=== PATIENT | male | born 1985 | race Two or more races ===

== ENCOUNTER 2025-04-14 11:58 | Inpatient (IN) | payer MEDICAID, OTHER ==
[~2025-04-14] VITALS: Ht 162.6 cm; Wt 75.1 kg
[2025-04-14] MEDS: LIDOCAINE VISCOUS 2% 15ML UD PO ONE ×2 (12:30→23:47)
[2025-04-14] MEDS ORDERED: PANTOPRAZOLE 40 MG TAB PO ONE ×2 (12:30)
[2025-04-14] MEDS: SUCRALFATE 1 GM TAB PO ONE ×2 (12:30→23:46)
--- NOTE | 2025-04-14 12:31 | ED.PDOC ---
General HPI Comments HPI: This is a 39 year old male presenting to the ED with chief complaint of hematuria and abdominal pain. Patient reports that he has been experiencing hematuria with associated dysuria, nausea, vomiting, loose stools, 9/10 epigastric abdominal pain, and suprapubic pain for the past week. Patient admits to daily, heavy ETOH abuse with Tequila and methamphetamine abuse. Patient denies any fever, chills, penile discharge, chest pain, SOB, flank pain, or dizziness. Initial Vitals BP: 166/108 HR: 118 RR: 16 O2 Sat: 96% Temp: 98.4F Past Medical history: Denies Past Surgical history: Appendectomy, Astigmatism surgery Medications: None Social History: Heavy ETOH use and +Methamphetamine use. Denies smoking. Allergies: NKDA HPI: Poor Historian. REVIEW OF SYSTEMS: CONSTITUTIONAL: Denies acute: fever, diaphoresis, chills, generalized weakness. HEAD: Denies acute: headache, photophobia Eyes: Denies acute: Double vision, vision loss, eye pain, eye discharge. EARS: Denies acute: tinnitus, hearing loss, ear discharge, ear pain, THROAT: Denies acute: sore throat, swelling, difficulty swallowing , pain with swallowing, change in voice. NECK: Denies acute: neck pain, neck swelling, stiff neck. HEART: Denies acute : chest pain, palpitations, LUNGS: Denies acute: SOB, wheezing, cough, hemoptysis ABDOMEN: Denies acute: melena , hematemesis, hematochezia SKIN: Denies acute: rash, redness, lesions, itchiness. EXTREMITIES: Denies acute: calf pain, numbness, tingling, weakness, denies pain in extremity. Denies acute: Low back pain. Neuro: Denies acute: focal neurological deficit, motor or sensory focal neurological deficit, tremors, seizure like activity, confusion, dizziness, change in mental status, loss of bowel or bladder function, cauda equina like symptoms. : Denies acute: dysuria, flank pain, increase in urinary frequency. PSYCH: Denies acute: hallucination, suicidal ideation, homicidal ideation. PHYSICAL EXAM: General: ----[id number]----acute distress, awake and alert. Head: normocephalic, atraumatic. Neck: supple, trachea is midline, no swelling. Throat: Normal phonation. Eyes:, no erythema, no purulent discharge, no proptosis, no icterus. Heart: regular tachycardia, no significant murmur appreciated. Lungs: no apparent respiratory distress, Able to speak in full sentences. No wheezing, no rhonchi, no crackles. No stridors Clear to auscultation bilaterally. Abdomen: epigastric and periumbilical tender to palpation, non distended, soft, no guarding, no rebound, + bowel sounds. Neuro: Awake, Alert, oriented to name, self, situation, follows commands GCS=15. Speech is normal. Skin: no petechia, no purpura, no cyanosis, non-pale, not jaundice. Lower extremities: --no - Pitting edema no deformity, no focal swelling, no calf TTP. Makes eye contact. moves all four extremities. Face: no apparent facial droop. Ambulating in the ED independently. ED COURSE: DISCLAIMER: This medical document was created using an electronic medical record system with voice recognition software and computerized dictation system. Although this document has been carefully reviewed, there might still be some phonetic and typographical errors. Occasional wrong-word or "sound-alike" substitutions may have occurred due to the inherent limitations of voice recognition software. These areas are purely typographical due to imperfections of the software programs and do not reflect any compromise in the patient's medical care. Please read the chart carefully and recognize, using context, where these substitutions have occurred. Time Seen by MD: 12:28 Reviewed notes: Medications, Allergies Allergies: Coded Allergies: NO KNOWN ALLERGIES (Unverified , 04/14/25) Information Source: Patient Mode of Arrival: Ambulatory Was a procedure done? Was a procedure done?: No Differential Diagnosis Kidney stone (Female): N/A Urinary Problem (Male): Bladder Outlet, Bladder Obstruction, Epididymitis, Prostatitis, Plelonephritis, Post op Complications, Renal Failure, Urethritis, Urinary Retention, Urolithiasis, UTI Other Differential Diagnosis DDX include but not limited to diverticulitis, colitis, gastroenteritis, acute abdomen, SBO, enteritis, constipation, volvulus, appendicitis, Gallbladder disease, choledocolithiasis, ascending cholangitis, pancreatitis, intraAbdominal mass/neoplasm, hepatitis, UTI, pylonephritis, kidney stone, aneurysm, dissection, Inflammatory bowel disease, gastroparesis, ischemic bowel. X-Ray, Labs, Meds, VS Vital Signs Date Time Temp Pulse Resp B/P (MAP) Pulse Ox O2 Delivery O2 Flow Rate FiO2 04/14/25 15:28 99.3 87 18 148/95 (112) 97 99.3 04/14/25 12:10 98.4 118 16 166/108 (127) 96 98.4 Lab Test 04/14/25 14:59 04/14/25 13:01 04/14/25 12:15 Range/Units Lactic Acid Level 1.8 2.3 *H 0.4-2.0 mmol/L White Blood Count 3.7 L 4.4-10.8 10^3/uL Red Blood Count 4.89 4.5-5.90 10^6/uL Hemoglobin 14.8 13.5-17.5 g/dL Hematocrit 42.8 41.0-53.0 % Mean Corpuscular Volume 87.5 80.0-100.0 fL Mean Corpuscular Hemoglobin 30.2 28.0-32.0 pg Mean Corpuscular Hemoglobin Concent 34.5 32.0-36.0 g/dL Red Cell Distribution Width 14.0 11.8-14.3 % Platelet Count 150 140-450 10^3/uL Mean Platelet Volume 7.8 6.9-10.8 fL Neutrophils (%) (Auto) 66.4 37.0-80.0 % Lymphocytes (%) (Auto) 21.1 10.0-50.0 % Monocytes (%) (Auto) 10.7 0.0-12.0 % Eosinophils (%) (Auto) 0.3 0.0-7.0 % Basophils (%) (Auto) 1.5 0.0-2.0 % Neutrophils # (Auto) 2.5 1.6-8.6 10 ^3/uL Lymphocytes # (Auto) 0.8 0.4-5.4 10 ^3/uL Monocytes # (Auto) 0.4 0-1.3 10 ^3/uL Eosinophils # (Auto) 0 0-0.8 10 ^3/uL Basophils # (Auto) 0.1 0-0.2 10 ^3/uL Nucleated Red Blood Cells 0.1 % Sodium Level 140 136-145 mmol/L Potassium Level 3.4 L 3.5-5.1 mmol/L Chloride Level 97 L 98-107 mmol/L Carbon Dioxide Level 31 20-31 mmol/L Anion Gap 12 5-15 Blood Urea Nitrogen < 5 L 9-23 mg/dL Creatinine 0.53 L 0.700-1.30 mg/dL Glomerular Filtration Rate Calc 132 >90 mL/min BUN/Creatinine Ratio 9.4 L 10.0-20.0 Serum Glucose 150 H 74-106 mg/dL Calcium Level 10.0 8.7-10.4 mg/dL Magnesium Level 1.5 L 1.6-2.6 mg/dL Total Bilirubin 1.0 0.2-1.0 mg/dL Aspartate Amino Transferase (AST) 159 H <34 U/L Alanine Aminotransferase (ALT) 173 H 7-40 U/L Alkaline Phosphatase 118 H 46-116 U/L Troponin I High Sensitivity 5 </=54 ng/L Total Protein 8.2 5.7-8.2 g/dL Albumin 5.2 H 3.2-4.8 g/dL Lipase 87 H 12-53 U/L Urine Color Yellow Yellow Urine Clarity Clear Clear Urine pH 6.5 5.0-9.0 Urine Specific [place] 1.015 1.001-1.035 Urine Protein 1+ H Negative Urine Ketones Trace Negative Urine Blood Negative Negative /uL Urine Nitrite Negative Negative Urine Bilirubin Negative Negative Urine Urobilinogen 3 H Negative mg/dL Urine Leukocyte Esterase Negative Negative /uL Urine RBC 2 0 - 3 /hpf Urine Microscopic WBC < 1 0-3 /HPF Urine Squamous Epithelial Cells Few <5 /hpf Urine Bacteria None seen None Seen /hpf Urine Glucose 3+ H Normal mg/dL Urine Opiates Screen Neg NEGATIVE Urine Fentanyl Screen Neg NEGATIVE Urine Barbiturates Screen Neg NEGATIVE Urine Phencyclidine Screen Neg NEGATIVE Urine Amphetamines Screen Neg NEGATIVE Urine Benzodiazepines Screen Neg NEGATIVE Urine Cocaine Screen Neg NEGATIVE Urine Cannabinoids Screen Neg NEGATIVE [facility] [id number] [place] [id number] Ph: [phone] DIAGNOSTIC IMAGING Diagnostic Imaging Report : [id number] Signed PATIENT: DOM LOERA RACCT: [id number] UNIT: [id number] : 1985 LOC: ER ROOM / BED: / AGE / SEX: 39 / M ADM STATUS: REG ER SERVICE 1223 ORDERING PHYSICIAN: ULYSSES LOUIS DO PROCEDURE(s): ABPL - CT AB PEL WO CON-NO ORAL OR IV REASON: abd pain n/v/d ORDER NUMBER(s): [id number], ACCESSION NUMBER(s): [id number] CT CT AB PEL WO CON-NO ORAL OR IV INDICATION: abd pain n/v/d EXAM DATE: 04/14/2025 12:33 PM COMPARISON: None RADIATION DOSE: CTDIvol: 9.3 mGy, DLP: 488.63 mGy*cm PROCEDURE: Helical CT images were obtained of the abdomen and pelvis without IV contrast Sagittal and coronal reconstructions are provided. ORAL CONTRAST: None. ADDITIONAL IMAGES / REFORMATS: None All CT scans at this medical facility are performed using dose modulation techniques as appropriate to a performed exam including the following: Automated exposure control was utilized; adjustment of the MA and/or KV according to patient size; and use of iterative reconstruction technique. FINDINGS: LUNG BASE: Normal. LIVER: Low in attenuation. 21 cm. GALLBLADDER AND BILIARY TREE: No calcified gallstones. Normal caliber wall. No intra- or extrahepatic biliary ductal dilation. PANCREAS: Normal. SPLEEN: Normal. BOWEL: Normal. Appendix is not visualized. ADRENALS: Normal. KIDNEYS AND URETER: Normal. BLADDER: Normal. REPRODUCTIVE ORGANS: Normal. LYMPH NODES:No lymphadenopathy. PERITONEUM: No ascites or free air. No other fluid collection. VESSELS: Scattered atherosclerotic calcifications are noted. RETROPERITONEUM: Normal. ABDOMINAL WALL: Normal. BONES: Scattered osseous degenerative changes are noted. IMPRESSION: No acute intraabdominal abnormality. Hepatomegaly with hepatic steatosis. Appendix not visualized. ATED BY: MITCH FULLER MD DICTATED DATE/TIME: 04/14/25 130 SIGNED BY: MITCH FULLER MD SIGNED DATE/TIME: 04/14/25 130 CC: Time of 1ST Reevaluation: 13:28 Reevaluation 1ST: Unchanged Patient Education/Counseling: Diagnosis, Treatment Family Education/Counseling: No Family Present Departure 1 Departure Time of Disposition: 13:38 Impression: Primary Impression: Alcohol abuse Additional Impressions: Pancreatitis Elevated LFTs Abdominal pain Alcoholic gastritis Hypomagnesemia Disposition: ADMITTED INPATIENT Admit to: Tele Condition: Guarded Discharged With: Self Critical Care Note Critical Care Time?: Yes (45 min-critical care time only) I personally scribed for ULYSSES LOUIS DO ([email or web address]) on 04/14/25 at 12:30. Electronically submitted by Felice Moreno ([email or web address]). I personally scribed for ULYSSES LOUIS DO ([email or web address]) on 04/14/25 at 14:14. Electronically submitted by Felice Moreno ([email or web address]). I personally scribed for ULYSSES LOUIS DO ([email or web address]) on 04/14/25 at 14:37. Electronically submitted by Felice Moreno ([email or web address]). ULYSSES LOUIS DO Apr 14, 2025 12:30
[2025-04-14 12:56] LABS: Urine Bacteria None Seen /hpf (None Seen)
--- NOTE | 2025-04-14 13:09 | DVH ---
CT CT AB PEL WO CON-NO ORAL OR IV INDICATION: abd pain n/v/d EXAM DATE: 04/14/2025 12:33 PM COMPARISON: None RADIATION DOSE: CTDIvol: 9.3 mGy, DLP: 488.63 mGy*cm PROCEDURE: Helical CT images were obtained of the abdomen and pelvis without IV contrast Sagittal and coronal reconstructions are provided. ORAL CONTRAST: None. ADDITIONAL IMAGES / REFORMATS: None All C T scans at this medical facility are performed using dose modulation techniques as appropriate to a p erformed exam including the following: Automated exposure control was utilized; adjustment of the MA and/or KV according to patient size; and use of iterative reconstruction technique. FINDINGS: LUNG BASE: Normal. LIVER: Low in attenuation. 21 cm. GALLBLADDER AND BILIARY TREE: No calcified gallstones. Normal caliber wall. No intra- or extrahepatic biliary ductal dilation. PANCREAS: Normal. SPLEEN: Normal. BOWEL: Normal. Appendix is not visualized. ADRENALS: Normal. KIDNEYS AND URETER: Normal. BLADDER: Normal. REPRODUCTIVE ORGANS: Normal. LYMPH NODES:No lymphadenopathy. PERITONEUM: No ascites or free air. No other fluid collection. VESSELS: Scattered atherosclerotic calcifications are noted. RETROPERITONEUM: Normal. ABDOMINAL WALL: Normal. BONES: Scattered osseous degenerative changes are noted. IMPRESSION: No acute intraabdominal abnormality. Hepatomegaly with hepatic steatosis. Appendix not visualized.
[2025-04-14 13:11] LABS: Urine Blood Negative /uL (Negative); Urine Clarity Clear (Clear); Urine Color Yellow (Yellow); Urine Protein, UAD 1+ (Negative); Urine Specific Gravity 1.015 (1.001-1.035); Urine Squamous Epithelial Cell FEW /hpf (<5); Urine Urobilinogen 3 mg/dL (Negative); Urine WBC < 1 /HPF (0-3); Urine pH 6.5 (5.0-9.0)
[2025-04-14 13:16] LABS: Basophils # (auto) 0.1 10 ^3/uL (0-0.2); Basophils % (auto) 1.5 % (0.0-2.0); Eosinophils # (auto) 0 10 ^3/uL (0-0.8); Eosinophils % (auto) 0.3 % (0.0-7.0); Hematocrit 42.8 % (41.0-53.0); Hemoglobin 14.8 g/dL (13.5-17.5); Lymphocytes # (auto) 0.8 10 ^3/uL (0.4-5.4); Lymphocytes % (auto) 21.1 % (10.0-50.0); Mean Corpuscular Hemoglobin 30.2 pg (28.0-32.0); Mean Corpuscular Hgb Conc. 34.5 g/dL (32.0-36.0); Mean Corpuscular Volume 87.5 fL (80.0-100.0); Monocytes # (auto) 0.4 10 ^3/uL (0-1.3); Monocytes % (auto) 10.7 % (0.0-12.0); Neutrophils # (auto) 2.5 10 ^3/uL (1.6-8.6); Neutrophils % (auto) 66.4 % (37.0-80.0); Nucleated Red Blood Cells % 0.1 %; Platelet Count (auto) 150 10^3/uL (140-450); Red Blood Cells 4.89 10^6/uL (4.5-5.90); White Blood Cell 3.7 10^3/uL (4.4-10.8)
[2025-04-14 13:20] LABS: Amphetamine Screen, Urine Neg (NEGATIVE); Barbiturate Scree,Urine Neg (NEGATIVE); Benzodiazephine Screen, Urine Neg (NEGATIVE); Cannabinoid Screen, Urine Neg (NEGATIVE); Cocaine Screen, Urine Neg (NEGATIVE); Opiate Scree,Urine Neg (NEGATIVE); Phencyclidine Screen, Urine Neg (NEGATIVE)
[2025-04-14 13:34] LABS: Anion Gap 12 (5-15); Sodium 140 mmol/L (136-145)
[2025-04-14 13:35] LABS: Alanine Aminotransferase 173 U/L (7-40); Albumin 5.2 g/dL (3.2-4.8); Alkaline Phosphatase 118 U/L (46-116); Aspartate Aminotransferase 159 U/L (<34); BUN/Creatinine Ratio 9.4 (10.0-20.0); Blood Urea Nitrogen < 5 mg/dL (9-23); Carbon Dioxide 31 mmol/L (20-31); Chloride 97 mmol/L (98-107); Glucose 150 mg/dL (74-106); Lipase 87 U/L (12-53); Magnesium 1.5 mg/dL (1.6-2.6); Potassium 3.4 mmol/L (3.5-5.1); Total Protein 8.2 g/dL (5.7-8.2)
[2025-04-14 13:37] LABS: Lactic Acid w/Reflex 2.3 mmol/L (0.4-2.0)
--- NOTE | 2025-04-14 14:57 | DVHHP2 ---
History of Present Illness Reason for Visit: Abdominal pain History of Present Illness 39-year-old male past medical history appendectomy eye surgery and hypertension chief complaint patient is here with the sister at side they state he is currently homeless he has been coming in with multiple complaints she is complain with the flank pain pelvic pain around his prostate difficulty voiding he does have some blood in his urine dissolving going on for one week he denies any chest pain no shortness with the breath no headache no dizziness no fever patient does admit to heavy drinking he states that he drank pretty heavy yesterday was his last drink he drinks a large amount of Tequila daily patient does admit that he wants to get help for his drinking he does complain of some abdominal pain which is epigastric in nature he was given Mag normal saline Protonix Carafate and a GI cocktail in the ED CBC was unremarkable potassium was 3.1 glucose was 150 urine drug screen was negative UA was negative lactate was 2.3 Mag was 1.5 AST was 159 ALT was 1738 alkaline phosphatase 118 troponin was negative lipase was 87 patient does admit to meth use two weeks ago with these findings we will admit provide IV hydration for alcohol withdrawal also we will do further workup also we will consult healthcare social worker for discharge planning Past Medical History See HPI above Past Surgical History See HPI above Past Social History Patient does drink heavy last drink was today denies drug use last use was two weeks ago with meth denies smoking Review of Systems Constitutional: No: Fever, Chills, Sweats, Weakness, Malaise, Other Eyes: No: Pain, Vision change, Conjunctivae inflammation, Eyelid inflammation, Other, Redness ENT: No: Ear pain, Ear discharge, Nose pain, Nose discharge, Nose congestion, Mouth pain, Mouth swelling, Throat pain, Throat swelling, Other Respiratory: No: Cough, Dry, Shortness of breath, SOB with excertion, Wheezing, Hemoptysis, Pleuritic Pain, Sputum, Wheezing, Other Cardiovascular: No: Chest Pain, Palpitations, Orthopnea, Paroxysmal Noc. Dyspnea, Edema, Lt Headedness, Other Gastrointestinal: Nausea, Vomiting, Abdominal Pain; No: Diarrhea, Constipation, Melena, Hematochezia, Other Genitourinary: No Dysuria, No Frequency, No Incontinence, No Hematuria, No Retention, No Other Musculoskeletal: No: other, neck pain, shoulder pain, arm pain, back pain, hand pain, leg pain, foot pain Skin: No: Rash, Lesions, Jaundice, Bruising, Other Neurological: No: Weakness, Numbness, Incoordination, Change in speech, Confusion, Seizures, Other Allergies: Coded Allergies: NO KNOWN ALLERGIES (Unverified , 04/14/25) Exam Vital Signs Vital Signs Date Time Temp Pulse Resp B/P (MAP) Pulse Ox O2 Delivery O2 Flow Rate FiO2 04/14/25 12:10 98.4 118 16 166/108 (127) 96 98.4 General Appearance: Alert, Oriented X3, Cooperative, No acute distress HEENT: Atraumatic, PERRLA, EOMI, Mucous membr. moist/pink Respiratory: Clear to auscultation, Normal air movement Cardiovascular: Regular rate, Normal S1, Normal S2, No murmurs Abdominal: Normal bowel sounds, Soft, No hepatospenomegaly, No masses, Other (epigastric ) Extremities: No clubbing, No cyanosis, No edema, Normal pulses, No tenderness/swelling Skin: No rashes, No breakdown, No significant lesion Neuro: Normal gait, Normal speech, Strength at 5/5 X4 ext, Normal tone, Sensation intact, Cranial nerves 3-12 NL Psych/Mental Status: Mental status NL, Mood NL Labs/Xrays I reviewed labs, imaging CT scan abdomen pelvis, EKG and all diagnostic studies on this patient from ED records and the medical chart Labs Test 04/14/25 13:01 04/14/25 12:15 Range/Units White Blood Count 3.7 L 4.4-10.8 10^3/uL Red Blood Count 4.89 4.5-5.90 10^6/uL Hemoglobin 14.8 13.5-17.5 g/dL Hematocrit 42.8 41.0-53.0 % Mean Corpuscular Volume 87.5 80.0-100.0 fL Mean Corpuscular Hemoglobin 30.2 28.0-32.0 pg Mean Corpuscular Hemoglobin Concent 34.5 32.0-36.0 g/dL Red Cell Distribution Width 14.0 11.8-14.3 % Platelet Count 150 140-450 10^3/uL Mean Platelet Volume 7.8 6.9-10.8 fL Neutrophils (%) (Auto) 66.4 37.0-80.0 % Lymphocytes (%) (Auto) 21.1 10.0-50.0 % Monocytes (%) (Auto) 10.7 0.0-12.0 % Eosinophils (%) (Auto) 0.3 0.0-7.0 % Basophils (%) (Auto) 1.5 0.0-2.0 % Neutrophils # (Auto) 2.5 1.6-8.6 10 ^3/uL Lymphocytes # (Auto) 0.8 0.4-5.4 10 ^3/uL Monocytes # (Auto) 0.4 0-1.3 10 ^3/uL Eosinophils # (Auto) 0 0-0.8 10 ^3/uL Basophils # (Auto) 0.1 0-0.2 10 ^3/uL Nucleated Red Blood Cells 0.1 % Sodium Level 140 136-145 mmol/L Potassium Level 3.4 L 3.5-5.1 mmol/L Chloride Level 97 L 98-107 mmol/L Carbon Dioxide Level 31 20-31 mmol/L Anion Gap 12 5-15 Blood Urea Nitrogen < 5 L 9-23 mg/dL Creatinine 0.53 L 0.700-1.30 mg/dL Glomerular Filtration Rate Calc 132 >90 mL/min BUN/Creatinine Ratio 9.4 L 10.0-20.0 Serum Glucose 150 H 74-106 mg/dL Lactic Acid Level 2.3 *H 0.4-2.0 mmol/L Calcium Level 10.0 8.7-10.4 mg/dL Magnesium Level 1.5 L 1.6-2.6 mg/dL Total Bilirubin 1.0 0.2-1.0 mg/dL Aspartate Amino Transferase (AST) 159 H <34 U/L Alanine Aminotransferase (ALT) 173 H 7-40 U/L Alkaline Phosphatase 118 H 46-116 U/L Troponin I High Sensitivity 5 </=54 ng/L Total Protein 8.2 5.7-8.2 g/dL Albumin 5.2 H 3.2-4.8 g/dL Lipase 87 H 12-53 U/L Urine Color Yellow Yellow Urine Clarity Clear Clear Urine pH 6.5 5.0-9.0 Urine Specific [place] 1.015 1.001-1.035 Urine Protein 1+ H Negative Urine Ketones Trace Negative Urine Blood Negative Negative /uL Urine Nitrite Negative Negative Urine Bilirubin Negative Negative Urine Urobilinogen 3 H Negative mg/dL Urine Leukocyte Esterase Negative Negative /uL Urine RBC 2 0 - 3 /hpf Urine Microscopic WBC < 1 0-3 /HPF Urine Squamous Epithelial Cells Few <5 /hpf Urine Bacteria None seen None Seen /hpf Urine Glucose 3+ H Normal mg/dL Urine Opiates Screen Neg NEGATIVE Urine Fentanyl Screen Neg NEGATIVE Urine Barbiturates Screen Neg NEGATIVE Urine Phencyclidine Screen Neg NEGATIVE Urine Amphetamines Screen Neg NEGATIVE Urine Benzodiazepines Screen Neg NEGATIVE Urine Cocaine Screen Neg NEGATIVE Urine Cannabinoids Screen Neg NEGATIVE Assessment/Plan Assessment/Plan acute etoh withdrawal likely intox pt admit to drinking heavy etoh use tequila and meth ordered Librium taper ordered Ativan as needed ordered Seizure precautions monitor for etoh withdrawal ordered etoh level ordered vit b 12 level fu results ordered banana bag acute acholic keto acidosis related to alcohol intoxication lactic elevated ordered iv hydration ordered bmp daily ordered Ativan as needed acute Intractable abdominal pain epigastric pain ordered Protonix morphine Zofran ordered us fu results ordered N.p.o. for now Acute transaminitis likely from etoh abuse ordered us liver fu results ordered hepatitis testing avoid liver toxic drugs monitor for confusion acute hypokalemia ordered potassium oral fu k in am mag lower ordered mag replacement acute pancreatitis elevated lipase npo for now ordered ivf hydration ordered morphine as needed for pain acute EtOH abuse hospital social worker also consult for resources Encourage abstinence fen/ppx npo Protonix IV fluids SCDs no dvt ppx since pt is ambulatory plan admit to tele for IV fluid hydration monitor for alcohol withdrawal and seizure precautions Plan discussed with: Patient Date of Service: Apr 14, 2025 Billing Provider: MJ ESPARZA DNP Common Visit Codes: [id number] INP/OBS CARE (HIGH) MJ ESPARZA DNP Apr 14, 2025 14:57
[2025-04-14] MEDS ORDERED: NITROGLYCERIN 0.4 MG SL TAB SL PRN (16:15)
[2025-04-14] MEDS ORDERED: ONDANSETRON HCL 4 MG/2 ML VIAL IV PRN (16:15)
[2025-04-14] MEDS ORDERED: MORPHINE SULFATE INJ 2 MG/ml SYRG IV PRN (16:15)
[2025-04-14] MEDS ORDERED: DOCUSATE SOD 100 MG CAP PO PRN (16:15)
--- NOTE | 2025-04-14 17:50 | DVH ---
INDICATION: ordered us eval for acute transaminitis/ epigastric pain TECHNIQUE: Multiple real-time sonographic images were obtained of the right upper quadrant. COMPARISON: None FINDINGS: The liver appears echogenic consistent with fatty infiltration. Mild hepatomegaly. No gallstones No right renal hydronephrosis Normal inferior vena cava Common bile duct measures 0.3 cm Gallbladder wall measures 0.1 cm Negative Vann's sign No pleural effusion Normal pancreas IMPRESSION: 1. No gallstones Mild hepatomegaly
[2025-04-14] MEDS: chlordiazePOXIDE HCL 25 MG CAP PO SCH (23:46)
[2025-04-14] MEDS: POTASSIUM EFFERVESENT TAB 25 MEQ PO ONE (23:47)
[2025-04-14] MEDS: PANTOPRAZOLE 40 MG/10 ML VIAL INJ IV ONE (23:47)
[2025-04-14] MEDS: SODIUM CHLORIDE 0.9% 1,000 ML IV ONE (23:48)
[2025-04-14] MEDS: ONDANSETRON HCL 4 MG/2 ML VIAL IV ONE (23:48)
[2025-04-14] MEDS: MAGNESIUM SULFATE 1GM/100ML 100 ML IV ONE (23:57)
[2025-04-15] VITALS (8 sets, daily range): BP systolic 150–157; BP diastolic 85–111; PULSE 95–111; RESP 17–20; TEMP 97.7–99.4; O2SAT 95–99
[2025-04-15] MEDS: SODIUM CHLORIDE 0.9% 1,000 ML IV ONE (00:22)
[2025-04-15] MEDS: SODIUM CHLORIDE 0.9% 1,000 ML IV SCH (00:35)
[2025-04-15 05:19] LABS: Basophils # (auto) 0 10 ^3/uL (0-0.2); Basophils % (auto) 1.1 % (0.0-2.0); Eosinophils # (auto) 0 10 ^3/uL (0-0.8); Eosinophils % (auto) 0.9 % (0.0-7.0); Hematocrit 37.8 % (41.0-53.0); Hemoglobin 12.8 g/dL (13.5-17.5); Lymphocytes # (auto) 1.5 10 ^3/uL (0.4-5.4); Lymphocytes % (auto) 35.8 % (10.0-50.0); Mean Corpuscular Hemoglobin 29.8 pg (28.0-32.0); Mean Corpuscular Hgb Conc. 33.8 g/dL (32.0-36.0); Monocytes # (auto) 0.5 10 ^3/uL (0-1.3); Monocytes % (auto) 10.8 % (0.0-12.0); Neutrophils # (auto) 2.2 10 ^3/uL (1.6-8.6); Neutrophils % (auto) 51.4 % (37.0-80.0); Platelet Count (auto) 132 10^3/uL (140-450); Red Cell Distribution Width 13.9 % (11.8-14.3); White Blood Cell 4.3 10^3/uL (4.4-10.8)
[2025-04-15 05:33] LABS: Albumin 4.5 g/dL (3.2-4.8); Alkaline Phosphatase 88 U/L (46-116); Anion Gap 9 (5-15); BUN/Creatinine Ratio 12.7 (10.0-20.0); Calcium 9.1 mg/dL (8.7-10.4); Carbon Dioxide 29 mmol/L (20-31); Chloride 101 mmol/L (98-107); Sodium 139 mmol/L (136-145)
[2025-04-15 05:34] LABS: Bilirubin, Total 0.9 mg/dL (0.2-1.0)
[2025-04-15 05:35] LABS: Alanine Aminotransferase 128 U/L (7-40); Aspartate Aminotransferase 102 U/L (<34); Blood Urea Nitrogen 7 mg/dL (9-23); Glucose 161 mg/dL (74-106); Lipase 103 U/L (12-53); Potassium 3.3 mmol/L (3.5-5.1)
[2025-04-15] MEDS: chlordiazePOXIDE HCL 25 MG CAP PO SCH (10:51)
[2025-04-15] MEDS: PANTOPRAZOLE 40 MG/10 ML VIAL INJ IV SCH (10:51)
[2025-04-15] MEDS: FOLIC ACID 1 MG, MULTIPLE VITAMIN 10 ML, MAGNESIUM SULF SDV 50% 8 MEQ, THIAMINE INJ 100... INJ SCH (14:13)
--- NOTE | 2025-04-15 16:50 | DVHPN2 ---
Subjective Patient denies any abdominal pain currently tolerating diet. Changes from previous H/P or p: No Changes Eyes: No Pain, No Vision change, No Conjunctivae inflammation, No Eyelid inflammation, No Other, No Redness ENT: No Ear pain, No Ear discharge, No Nose pain, No Nose discharge, No Nose congestion, No Mouth pain, No Mouth swelling, No Throat pain, No Throat swelling, No Other Cardiovascular: No Chest Pain, No Palpitations, No Orthopnea, No Paroxysmal Noc. Dyspnea, No Edema, No Lt Headedness, No Other Respiratory: No Cough, No Dry, No Shortness of breath, No SOB with excertion, No Wheezing, No Hemoptysis, No Pleuritic Pain, No Sputum, No Other Gastrointestinal: Nausea, Vomiting, Abdominal Pain; No Diarrhea, No Constipation, No Melena, No Hematochezia, No Other Genitourinary: No Dysuria, No Frequency, No Incontinence, No Hematuria, No Retention, No Other Musculoskeletal: No other, No neck pain, No shoulder pain, No arm pain, No back pain, No hand pain, No leg pain, No foot pain Skin: No Rash, No Lesions, No Jaundice, No Bruising, No Other Objective Vitals Vital Signs Date Time Temp Pulse Resp B/P (MAP) Pulse Ox O2 Delivery O2 Flow Rate FiO2 04/15/25 16:23 97.7 99 17 156/111 (126) 98 97.7 04/14/25 23:45 Room Air* 0 21 Intake/Output Intake and Output 04/15/25 07:00 Intake Total 1100 ml Balance 1100 ml Intake IV Total 1100 ml Exam HEENT pupils are reactive Neck is supple CVS S1-S2 regular rate and rhythm Respiratory are clear GI positive bowel sounds soft nondistended nontender no guarding no rigidity Extremity no edema 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 Medications Current Medications Medications Dose Ordered Sig/Stephanie Route Start Time Stop Time Status Last Admin Dose Admin Chlordiazepoxide HCl 50 mg Q12HR PO 04/15/25 10:00 04/15/25 22:01 04/15/25 10:51 50 MG Chlordiazepoxide HCl 25 mg Q12HR PO 04/16/25 10:00 04/16/25 22:01 Chlordiazepoxide HCl 25 mg QAM PO 04/17/25 07:00 04/17/25 07:01 Sodium Chloride 1,000 ml @ 120 mls/hr Q8H20M IV 04/14/25 16:15 04/15/25 12:20 120 MLS/HR Ondansetron HCl 4 mg Q4HP PRN IV 04/14/25 16:15 Docusate Sodium 100 mg BIDPRN PRN PO 04/14/25 16:15 Morphine Sulfate 2 mg Q4HPRN PRN IV 04/14/25 16:15 Nitroglycerin 0.4 mg Q5MINP PRN SL 04/14/25 16:15 Pantoprazole Sodium 40 mg DAILY IV 04/15/25 10:00 04/15/25 10:51 40 MG Folic Acid 1 mg/ Multivitamins 10 ml/Magnesium Sulfate 8 meq/ Thiamine HCl 100 mg/Dextrose 1,013.2 ml @ 125.001 mls/hr DAILY@1800 INJ 04/14/25 18:00 Hydralazine HCl 10 mg Q6HP PRN IV 04/14/25 16:15 Laboratory Results Laboratory Tests 04/15/25 04:28 Chemistry Test 04/15/25 04:28 Albumin 4.5 g/dL (3.2-4.8) Calcium Level 9.1 mg/dL (8.7-10.4) Total Protein 7.0 g/dL (5.7-8.2) Lipid panel Test 04/15/25 04:28 Lipase 103 U/L (12-53) H LFT Test 04/15/25 04:28 Alanine Aminotransferase (ALT) 128 U/L (7-40) H Alkaline Phosphatase 88 U/L (46-116) Aspartate Amino Transferase (AST) 102 U/L (<34) H Total Bilirubin 0.9 mg/dL (0.2-1.0) Urinalysis Test 04/14/25 12:15 Urine Color Yellow (Yellow) Urine Clarity Clear (Clear) Urine pH 6.5 (5.0-9.0) Urine Specific [place] 1.015 (1.001-1.035) Urine Protein 1+ (Negative) H Urine Ketones Trace (Negative) Urine Blood Negative /uL (Negative) Urine Nitrite Negative (Negative) Urine Bilirubin Negative (Negative) Urine Urobilinogen 3 mg/dL (Negative) H Urine Leukocyte Esterase Negative /uL (Negative) Urine RBC 2 /hpf (0 - 3) Urine Microscopic WBC < 1 /HPF (0-3) Urine Squamous Epithelial Cells Few /hpf (<5) Urine Bacteria None seen /hpf (None Seen) Urine Glucose 3+ mg/dL (Normal) H Assessment/Plan Assessment/Plan 39-year-old male with a known history of chronic alcoholism, chronic methamphetamine use, history of depression initially presented to the hospital with a intractable abdominal pain found to have 1. Alcohol withdrawal syndrome 2. Chronic alcoholism 3. Transaminitis 4. History of depression currently not suicidal 5. Previous history of methamphetamine use last use two weeks ago -tele psych consultation currently, continue IV banana bag, diet as tolerated. director emergency services consultation for drug rehab as an outpatient. Plan discussed with: Patient My Orders Orders - REJI LOERA MD Procedure Category Date Status Time 2 Gm Sodium Diet DIET 04/15/25 Transmitted Dinner Date of Service: Apr 15, 2025 Billing Provider: REJI LOERA MD Common Visit Codes: [id number] INP/OBS CARE(MOD) REJI LOERA MD Apr 15, 2025 16:50
[2025-04-16] VITALS (7 sets, daily range): BP systolic 132–161; BP diastolic 88–112; PULSE 89–107; RESP 17–20; TEMP 97.8–99; O2SAT 98–99
[2025-04-16] MEDS: chlordiazePOXIDE HCL 25 MG CAP PO SCH (09:18)
--- NOTE | 2025-04-16 12:04 | DVHINCON2 ---
Date of Service if different f: Apr 16, 2025 Consultation ([facility]) Labs Laboratory Tests Test 04/14/25 12:15 04/14/25 13:01 04/14/25 14:59 04/15/25 04:28 Urine Color Yellow (Yellow) Urine Clarity Clear (Clear) Urine pH 6.5 (5.0-9.0) Urine Specific [place] 1.015 (1.001-1.035) Urine Protein 1+ (Negative) Urine Ketones Trace (Negative) Urine Blood Negative /uL (Negative) Urine Nitrite Negative (Negative) Urine Bilirubin Negative (Negative) Urine Urobilinogen 3 mg/dL (Negative) Urine Leukocyte Esterase Negative /uL (Negative) Urine RBC 2 /hpf (0 - 3) Urine Microscopic WBC < 1 /HPF (0-3) Urine Squamous Epithelial Cells Few /hpf (<5) Urine Bacteria None seen /hpf (None Seen) Urine Glucose 3+ mg/dL (Normal) Urine Opiates Screen Neg (NEGATIVE) Urine Fentanyl Screen Neg (NEGATIVE) Urine Barbiturates Screen Neg (NEGATIVE) Urine Phencyclidine Screen Neg (NEGATIVE) Urine Amphetamines Screen Neg (NEGATIVE) Urine Benzodiazepines Screen Neg (NEGATIVE) Urine Cocaine Screen Neg (NEGATIVE) Urine Cannabinoids Screen Neg (NEGATIVE) Magnesium Level 1.5 mg/dL (1.6-2.6) Troponin I High Sensitivity 5 ng/L (</=54) Lactic Acid Level 1.8 mmol/L (0.4-2.0) White Blood Count 4.3 10^3/uL (4.4-10.8) Red Blood Count 4.30 10^6/uL (4.5-5.90) Hemoglobin 12.8 g/dL (13.5-17.5) Hematocrit 37.8 % (41.0-53.0) Mean Corpuscular Volume 88.0 fL (80.0-100.0) Mean Corpuscular Hemoglobin 29.8 pg (28.0-32.0) Mean Corpuscular Hemoglobin Concent 33.8 g/dL (32.0-36.0) Red Cell Distribution Width 13.9 % (11.8-14.3) Platelet Count 132 10^3/uL (140-450) Mean Platelet Volume 8.5 fL (6.9-10.8) Neutrophils (%) (Auto) 51.4 % (37.0-80.0) Lymphocytes (%) (Auto) 35.8 % (10.0-50.0) Monocytes (%) (Auto) 10.8 % (0.0-12.0) Eosinophils (%) (Auto) 0.9 % (0.0-7.0) Basophils (%) (Auto) 1.1 % (0.0-2.0) Neutrophils # (Auto) 2.2 10 ^3/uL (1.6-8.6) Lymphocytes # (Auto) 1.5 10 ^3/uL (0.4-5.4) Monocytes # (Auto) 0.5 10 ^3/uL (0-1.3) Eosinophils # (Auto) 0 10 ^3/uL (0-0.8) Basophils # (Auto) 0 10 ^3/uL (0-0.2) Nucleated Red Blood Cells 0.0 % Sodium Level 139 mmol/L (136-145) Potassium Level 3.3 mmol/L (3.5-5.1) Chloride Level 101 mmol/L (98-107) Carbon Dioxide Level 29 mmol/L (20-31) Anion Gap 9 (5-15) Blood Urea Nitrogen 7 mg/dL (9-23) Creatinine 0.55 mg/dL (0.700-1.30) Glomerular Filtration Rate Calc 131 mL/min (>90) BUN/Creatinine Ratio 12.7 (10.0-20.0) Serum Glucose 161 mg/dL (74-106) Calcium Level 9.1 mg/dL (8.7-10.4) Total Bilirubin 0.9 mg/dL (0.2-1.0) Aspartate Amino Transf (AST/SGOT) 102 U/L (<34) Alanine Aminotransferase (ALT/SGPT) 128 U/L (7-40) Alkaline Phosphatase 88 U/L (46-116) Total Protein 7.0 g/dL (5.7-8.2) Albumin 4.5 g/dL (3.2-4.8) Lipase 103 U/L (12-53) Test 04/16/25 11:20 Appetite: Fair Appearance: Stated age, Older than stated age, Disheveled Psychomotor activity: WNL Behavioral: Cooperative Eye contact: Limited Speech: Soft Affect: Mood Congruent Mood: Depressed Thought processes: Linear/Goal-directed Thought content: WNL Suicidal ideations: Absent Homicidal ideations: Absent Orientation: Person, Place, Time, Situation Memory intact: Recent Intellect: Average Abstractability: WNL Concentration: Adequate Attention: Adequate Judgement: WNL Insight: Fair Vitals Vital Signs Date Time Temp Pulse Resp B/P (MAP) Pulse Ox O2 Delivery O2 Flow Rate FiO2 04/16/25 09:00 98.5 107 18 143/96 (112) 98 98.5 04/16/25 08:00 Room Air* 0 21 Current medications Current Medications Medications Dose Ordered Sig/Stephanie Route Start Time Stop Time Status Last Admin Dose Admin Chlordiazepoxide HCl 25 mg Q12HR PO 04/16/25 10:00 04/16/25 22:01 04/16/25 09:18 25 MG Chlordiazepoxide HCl 25 mg QAM PO 04/17/25 07:00 04/17/25 07:01 Sodium Chloride 1,000 ml @ 120 mls/hr Q8H20M IV 04/14/25 16:15 04/16/25 09:55 120 MLS/HR Ondansetron HCl 4 mg Q4HP PRN IV 04/14/25 16:15 Docusate Sodium 100 mg BIDPRN PRN PO 04/14/25 16:15 Morphine Sulfate 2 mg Q4HPRN PRN IV 04/14/25 16:15 Nitroglycerin 0.4 mg Q5MINP PRN SL 04/14/25 16:15 Pantoprazole Sodium 40 mg DAILY IV 04/15/25 10:00 04/16/25 09:18 40 MG Folic Acid 1 mg/ Multivitamins 10 ml/Magnesium Sulfate 8 meq/ Thiamine HCl 100 mg/Dextrose 1,013.2 ml @ 125.001 mls/hr DAILY@1800 INJ 04/14/25 18:00 04/15/25 18:00 125.001 MLS/HR Hydralazine HCl 10 mg Q6HP PRN IV 04/14/25 16:15 Medication adjusted: Yes Diagnosis: unspecified mood disorder, methamphetamine abuse, alcohol abuse disorder Plan : Patient presently denies Si/Hi and does not meet LPS hold criteria Recommend to start Lexapro 10mg po daily for mood. Gabapentin 300mg po TID for alcohol cravings He is requesting referrals for residential rehab treatment, please refer to nursing home social worker he may discharge after medical clearance encouraged substance avoidance History of Present Illness Reason for Consult : patient reports depressed mood and substance use HPI : This is a 39-year-old [place]ian-speaking male, presented here for hematuria and abdominal pain. patient with history of methamphetamine, alcohol abuse, and depression. Patient is evaluated via Telepsychiatry. He reports history of feeling depressed. He reports use of substances, alcohol and methamphetamine. He reports his substance use has led to loss of employment because he was drinking on the job. He also reports, soon will lose his home and partner. He does endorse wanting to get help to stop substance abuse. He appears future-oriented. He reports feeling depressed for the last three years. low appetite and poor sleep. He reports drinking tequila daily, about a half a liter per day for the last five years. He is also using methamphetamine for some years, last use was three weeks ago. He denies hallucination with alcohol withdrawal. No Seizures. He denies suicidal or homicidal ideation. He sometimes has auditory hallucinations, usually with substance use, he reports the last auditory hallucinations was two months ago. He denies any visual hallucinations or paranoia thoughts. Past Psychiatric History : He denies prior psych admissions for 5150 holds. He denies any prior suicide attempts. He denies any outpatient connection to mental health. he denies any prior psychotropic medications or formal mental health diagnosis. Past Medical History : per history and physical Social History : He lives with his partner and kids unclear if he is able to return home, requesting for residential rehab programs. He denies any known family history of mental health problems. He reports the use of methamphetamine and alcohol, denies other substance use. Toxicology was negative on admission here. 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 RAS TONY DNP Apr 16, 2025 12:04
[2025-04-16] MEDS: hydrALAZINE HCL 20 MG/ML VL IV PRN (13:19)
[2025-04-16] MEDS: MULTIPLE VITAMIN TAB PO ONE (13:19)
[2025-04-16] MEDS: THIAMINE HCL 100 MG TAB PO ONE (13:19)
[2025-04-16] MEDS: FOLIC ACID 1 MG TAB PO ONE (13:19)
[2025-04-16] MEDS: MAGNESIUM OXIDE 400 MG TAB PO ONE (13:20)
[2025-04-16 16:41] LABS: Anion Gap 10 (5-15); Carbon Dioxide 29 mmol/L (20-31); Chloride 102 mmol/L (98-107); Potassium 3.8 mmol/L (3.5-5.1); Sodium 141 mmol/L (136-145)
[2025-04-16] MEDS ORDERED: GABA-1250 PO (16:44)
[2025-04-16] MEDS ORDERED: ESCI10TA PO (16:44)
--- NOTE | 2025-04-16 16:46 | DVHDS2 ---
Discharge Summary Date of Admission Apr 14, 2025 at 16:05 Date of Discharge: Apr 16, 2025 Labs/Diagnostic Data: Laboratory Results Test 04/16/25 16:00 04/16/25 11:20 04/15/25 04:28 04/14/25 14:59 Stool for White Cells Rare White Blood Count 4.3 10^3/uL (4.4-10.8) Red Blood Count 4.30 10^6/uL (4.5-5.90) Hemoglobin 12.8 g/dL (13.5-17.5) Hematocrit 37.8 % (41.0-53.0) Mean Corpuscular Volume 88.0 fL (80.0-100.0) Mean Corpuscular Hemoglobin 29.8 pg (28.0-32.0) Mean Corpuscular Hemoglobin Concent 33.8 g/dL (32.0-36.0) Red Cell Distribution Width 13.9 % (11.8-14.3) Platelet Count 132 10^3/uL (140-450) Mean Platelet Volume 8.5 fL (6.9-10.8) Neutrophils (%) (Auto) 51.4 % (37.0-80.0) Lymphocytes (%) (Auto) 35.8 % (10.0-50.0) Monocytes (%) (Auto) 10.8 % (0.0-12.0) Eosinophils (%) (Auto) 0.9 % (0.0-7.0) Basophils (%) (Auto) 1.1 % (0.0-2.0) Neutrophils # (Auto) 2.2 10 ^3/uL (1.6-8.6) Lymphocytes # (Auto) 1.5 10 ^3/uL (0.4-5.4) Monocytes # (Auto) 0.5 10 ^3/uL (0-1.3) Eosinophils # (Auto) 0 10 ^3/uL (0-0.8) Basophils # (Auto) 0 10 ^3/uL (0-0.2) Nucleated Red Blood Cells 0.0 % Total Bilirubin 0.9 mg/dL (0.2-1.0) Aspartate Amino Transferase (AST) 102 U/L (<34) Alanine Aminotransferase (ALT) 128 U/L (7-40) Alkaline Phosphatase 88 U/L (46-116) Total Protein 7.0 g/dL (5.7-8.2) Albumin 4.5 g/dL (3.2-4.8) Lipase 103 U/L (12-53) Lactic Acid Level 1.8 mmol/L (0.4-2.0) Test 04/14/25 13:01 04/14/25 12:15 Troponin I High Sensitivity 5 ng/L (</=54) Urine Color Yellow (Yellow) Urine Clarity Clear (Clear) Urine pH 6.5 (5.0-9.0) Urine Specific [place] 1.015 (1.001-1.035) Urine Protein 1+ (Negative) Urine Ketones Trace (Negative) Urine Blood Negative /uL (Negative) Urine Nitrite Negative (Negative) Urine Bilirubin Negative (Negative) Urine Urobilinogen 3 mg/dL (Negative) Urine Leukocyte Esterase Negative /uL (Negative) Urine RBC 2 /hpf (0 - 3) Urine Microscopic WBC < 1 /HPF (0-3) Urine Squamous Epithelial Cells Few /hpf (<5) Urine Bacteria None seen /hpf (None Seen) Urine Glucose 3+ mg/dL (Normal) Urine Opiates Screen Neg (NEGATIVE) Urine Fentanyl Screen Neg (NEGATIVE) Urine Barbiturates Screen Neg (NEGATIVE) Urine Phencyclidine Screen Neg (NEGATIVE) Urine Amphetamines Screen Neg (NEGATIVE) Urine Benzodiazepines Screen Neg (NEGATIVE) Urine Cocaine Screen Neg (NEGATIVE) Urine Cannabinoids Screen Neg (NEGATIVE) Other Laboratory Tests 04/15/25 04:28 Brief Hx & Hospital Course: 39-year-old male with a known history of chronic alcoholism, chronic methamphetamine use, history of depression initially presented to the hospital with a intractable abdominal pain found to have alcohol withdrawal syndrome. Patient does have known history of chronic alcoholism currently drinking of borderline vodka every day for years. Patient also has active use of chronic methamphetamine use last use two weeks ago. Eventually patient was admitted started on IV banana bag for alcohol withdrawal syndrome as well as Librium. Tele psych was consulted patient was not found to be suicidal. And tele psych cleared the patient to be discharged on gabapentin and Lexapro. Please follow up as an outpatient with the drug rehab. Condition at Discharge: Stable Final Diagnosis/Problems List 39-year-old male with a known history of chronic alcoholism, chronic methamphetamine use, history of depression initially presented to the hospital with a intractable abdominal pain found to have 1. Alcohol withdrawal syndrome 2. Chronic alcoholism 3. Transaminitis 4. History of depression currently not suicidal 5. Previous history of methamphetamine use last use two weeks ago -tele psych consultation currently, continue IV banana bag, diet as tolerated. student services advisor consultation for drug rehab as an outpatient. Discharge Disposition: Home SNF Discharge Will this Physician continue t: No Discharge Instruct/Medications Diet: Cardiac 2g Na,low cholest Activity: No Restrictions, As Tolerated Follow Up/Referral: Follow up with the PCP in one week Follow up with Psychiatry in one week Medications: Gabapentin and Lexapro as prescribed Discharge Statement: "Patient was advised to return to the ER or call 911 if any headaches, dizziness, shortness of breath, chest pain, abdominal pain, bleeding, fevers, or worsening of medical condition. Patient was counseled about treatment plan, medications, possible side effects, patientverbalized understanding. All questions were answered to the best of my ability. This discharge took greater then 30 minutes in planning, reviewing documentation, counseling the patient, and discussing with other team members." ASSESSMENT ASSESSMENT Assessment This is an 86 year old male with known history of coronary artery disease status post single vessel CABG (internal mammary artery to LAD), severe aortic valve stenosis status post Maze procedure in 2017, CHF with systolic and diastolic dysfunction, who presented to the hospital with bilateral lower extremity edema x 1 week and exertional dyspnea found to have 1. Acute on chronic congestive heart failure exacerbation with systolic and diastolic dysfunction 2. Bilateral lower extremity swelling secondary to 1. 3. CAD status post single vessel CABG, status post Maze procedure for aortic valve stenosis in 2017 4. Hypertension 5. Paroxysmal Afib 6. Hyponatremia Date of Service: Apr 16, 2025 Billing Provider: REJI LOERA MD Common Visit Codes: 48875-HYV/OBS DISCH DAY >30min REJI LOERA MD Apr 16, 2025 16:46
[2025-04-16 16:47] LABS: BUN/Creatinine Ratio 15.9 (10.0-20.0); Blood Urea Nitrogen 10 mg/dL (9-23); Magnesium 1.9 mg/dL (1.6-2.6)
[2025-04-16 16:49] LABS: Calcium 10.6 mg/dL (8.7-10.4); Glucose 120 mg/dL (74-106)
[2025-04-16] MEDS ORDERED: GABAPENTIN 300 MG CAP PO SCH (22:00)
[2025-04-17] MEDS ORDERED: chlordiazePOXIDE HCL 25 MG CAP PO SCH (07:00)
[2025-04-17] MEDS ORDERED: MULTIPLE VITAMIN TAB PO SCH (10:00)
[2025-04-17] MEDS ORDERED: MAGNESIUM OXIDE 400 MG TAB PO SCH (10:00)
[2025-04-17] MEDS ORDERED: FOLIC ACID 1 MG TAB PO SCH (10:00)
[2025-04-17] MEDS ORDERED: THIAMINE HCL 100 MG TAB PO SCH (10:00)
--- NOTE | 2025-04-22 11:14 | DVHDS2 ---
Discharge Summary Date of Admission Apr 14, 2025 at 16:05 Date of Discharge: Apr 16, 2025 Labs/Diagnostic Data: Laboratory Results Test 04/16/25 16:00 04/16/25 11:20 04/15/25 04:28 04/14/25 14:59 Sodium Level 141 mmol/L (136-145) Potassium Level 3.8 mmol/L (3.5-5.1) Chloride Level 102 mmol/L (98-107) Carbon Dioxide Level 29 mmol/L (20-31) Anion Gap 10 (5-15) Blood Urea Nitrogen 10 mg/dL (9-23) Creatinine 0.63 mg/dL (0.700-1.30) Glomerular Filtration Rate Calc 126 mL/min (>90) BUN/Creatinine Ratio 15.9 (10.0-20.0) Serum Glucose 120 mg/dL (74-106) Calcium Level 10.6 mg/dL (8.7-10.4) Magnesium Level 1.9 mg/dL (1.6-2.6) Stool for White Cells Rare White Blood Count 4.3 10^3/uL (4.4-10.8) Red Blood Count 4.30 10^6/uL (4.5-5.90) Hemoglobin 12.8 g/dL (13.5-17.5) Hematocrit 37.8 % (41.0-53.0) Mean Corpuscular Volume 88.0 fL (80.0-100.0) Mean Corpuscular Hemoglobin 29.8 pg (28.0-32.0) Mean Corpuscular Hemoglobin Concent 33.8 g/dL (32.0-36.0) Red Cell Distribution Width 13.9 % (11.8-14.3) Platelet Count 132 10^3/uL (140-450) Mean Platelet Volume 8.5 fL (6.9-10.8) Neutrophils (%) (Auto) 51.4 % (37.0-80.0) Lymphocytes (%) (Auto) 35.8 % (10.0-50.0) Monocytes (%) (Auto) 10.8 % (0.0-12.0) Eosinophils (%) (Auto) 0.9 % (0.0-7.0) Basophils (%) (Auto) 1.1 % (0.0-2.0) Neutrophils # (Auto) 2.2 10 ^3/uL (1.6-8.6) Lymphocytes # (Auto) 1.5 10 ^3/uL (0.4-5.4) Monocytes # (Auto) 0.5 10 ^3/uL (0-1.3) Eosinophils # (Auto) 0 10 ^3/uL (0-0.8) Basophils # (Auto) 0 10 ^3/uL (0-0.2) Nucleated Red Blood Cells 0.0 % Total Bilirubin 0.9 mg/dL (0.2-1.0) Aspartate Amino Transferase (AST) 102 U/L (<34) Alanine Aminotransferase (ALT) 128 U/L (7-40) Alkaline Phosphatase 88 U/L (46-116) Total Protein 7.0 g/dL (5.7-8.2) Albumin 4.5 g/dL (3.2-4.8) Lipase 103 U/L (12-53) Lactic Acid Level 1.8 mmol/L (0.4-2.0) Test 04/14/25 13:01 04/14/25 12:15 Troponin I High Sensitivity 5 ng/L (</=54) Urine Color Yellow (Yellow) Urine Clarity Clear (Clear) Urine pH 6.5 (5.0-9.0) Urine Specific [place] 1.015 (1.001-1.035) Urine Protein 1+ (Negative) Urine Ketones Trace (Negative) Urine Blood Negative /uL (Negative) Urine Nitrite Negative (Negative) Urine Bilirubin Negative (Negative) Urine Urobilinogen 3 mg/dL (Negative) Urine Leukocyte Esterase Negative /uL (Negative) Urine RBC 2 /hpf (0 - 3) Urine Microscopic WBC < 1 /HPF (0-3) Urine Squamous Epithelial Cells Few /hpf (<5) Urine Bacteria None seen /hpf (None Seen) Urine Glucose 3+ mg/dL (Normal) Urine Opiates Screen Neg (NEGATIVE) Urine Fentanyl Screen Neg (NEGATIVE) Urine Barbiturates Screen Neg (NEGATIVE) Urine Phencyclidine Screen Neg (NEGATIVE) Urine Amphetamines Screen Neg (NEGATIVE) Urine Benzodiazepines Screen Neg (NEGATIVE) Urine Cocaine Screen Neg (NEGATIVE) Urine Cannabinoids Screen Neg (NEGATIVE) Other Laboratory Tests 04/16/25 16:00 04/15/25 04:28 Brief Hx & Hospital Course: Brief Hx & Hospital Course: 39-year-old male with a known history of chronic alcoholism, chronic methamphetamine use, history of depression initially presented to the hospital with a intractable abdominal pain found to have alcohol withdrawal syndrome. Patient does have known history of chronic alcoholism currently drinking of borderline vodka every day for years. Patient also has active use of chronic methamphetamine use last use two weeks ago. Eventually patient was admitted started on IV banana bag for alcohol withdrawal syndrome as well as Librium. Tele psych was consulted patient was not found to be suicidal. And tele psych cleared the patient to be discharged on gabapentin and Lexapro. Please follow up as an outpatient with the drug rehab. Condition at Discharge: Stable Final Diagnosis/Problems List 39-year-old male with a known history of chronic alcoholism, chronic methamphetamine use, history of depression initially presented to the hospital with a intractable abdominal pain found to have 1. Alcohol withdrawal syndrome 2. Chronic alcoholism 3. Transaminitis 4. History of depression currently not suicidal 5. Previous history of methamphetamine use last use two weeks ago -tele psych consultation currently, continue IV banana bag, diet as tolerated. eligibility services representative consultation for drug rehab as an outpatient. Discharge Disposition: Home SNF Discharge Will this Physician continue t: No Discharge Instruct/Medications Diet: Cardiac 2g Na,low cholest Activity: No Restrictions, As Tolerated Follow Up/Referral: Follow up with the PCP in one week Follow up with Psychiatry in one week Medications: Gabapentin and Lexapro as prescribed Discharge Statement: "Patient was advised to return to the ER or call 911 if any headaches, dizziness, shortness of breath, chest pain, abdominal pain, bleeding, fevers, or worsening of medical condition. Patient was counseled about treatment plan, medications, possible side effects, patientverbalized understanding. All questions were answered to the best of my ability. This discharge took greater then 30 minutes in planning, reviewing documentation, counseling the patient, and discussing with other team members. Condition at Discharge: Stable Final Diagnosis/Problems List Brief Hx & Hospital Course: 39-year-old male with a known history of chronic alcoholism, chronic methamphetamine use, history of depression initially presented to the hospital with a intractable abdominal pain found to have alcohol withdrawal syndrome. Patient does have known history of chronic alcoholism currently drinking of borderline vodka every day for years. Patient also has active use of chronic methamphetamine use last use two weeks ago. Eventually patient was admitted started on IV banana bag for alcohol withdrawal syndrome as well as Librium. Tele psych was consulted patient was not found to be suicidal. And tele psych cleared the patient to be discharged on gabapentin and Lexapro. Please follow up as an outpatient with the drug rehab. Condition at Discharge: Stable Final Diagnosis/Problems List 39-year-old male with a known history of chronic alcoholism, chronic methamphetamine use, history of depression initially presented to the hospital with a intractable abdominal pain found to have 1. Alcohol withdrawal syndrome 2. Chronic alcoholism 3. Transaminitis 4. History of depression currently not suicidal 5. Previous history of methamphetamine use last use two weeks ago -tele psych consultation currently, continue IV banana bag, diet as tolerated. eligibility services representative consultation for drug rehab as an outpatient. Discharge Disposition: Home SNF Discharge Will this Physician continue t: No Discharge Instruct/Medications Diet: Cardiac 2g Na,low cholest Activity: No Restrictions, As Tolerated Follow Up/Referral: Follow up with the PCP in one week Follow up with Psychiatry in one week Medications: Gabapentin and Lexapro as prescribed Discharge Statement: "Patient was advised to return to the ER or call 911 if any headaches, dizziness, shortness of breath, chest pain, abdominal pain, bleeding, fevers, or worsening of medical condition. Patient was counseled about treatment plan, medications, possible side effects, patientverbalized understanding. All questions were answered to the best of my ability. This discharge took greater then 30 minutes in planning, reviewing documentation, counseling the patient, and discussing with other team members. Discharge Disposition: Home SNF Discharge Will this Physician continue t: No Discharge Instruct/Medications Diet: Cardiac 2g Na,low cholest Activity: No Restrictions, As Tolerated Follow Up/Referral: Follow up with the PCP in one week Follow up with Psychiatry in one week Medications: Gabapentin and Lexapro as prescribed Discharge Statement: "Patient was advised to return to the ER or call 911 if any headaches, dizziness, shortness of breath, chest pain, abdominal pain, bleeding, fevers, or worsening of medical condition. Patient was counseled about treatment plan, medications, possible side effects, patientverbalized understanding. All questions were answered to the best of my ability. This discharge took greater then 30 minutes in planning, reviewing documentation, counseling the patient, and discussing with other team members." ASSESSMENT ASSESSMENT Assessment Date of Service: Apr 16, 2025 Billing Provider: REJI LOERA MD Common Visit Codes: 05096-YDT/OBS DISCH DAY >30min REJI LOERA MD Apr 22, 2025 11:14
== END 2025-04-16 19:00 | disposition home or self-care (01) | DRG 282 ==
LOC: ER 11:58 → OVERFLOW 16:05 → TELE-EAST 04-15 17:43
PROVIDERS: ADMIT Internal Medicine; ATTEND Internal Medicine
DX: K85.90 Acute pancreatitis without necrosis or infection, unspecified (principal); E87.20 Acidosis, unspecified; K29.20 Alcoholic gastritis without bleeding; F10.239 Alcohol dependence with withdrawal, unspecified; F10.229 Alcohol dependence with intoxication, unspecified; F39 Unspecified mood [affective] disorder; E83.42 Hypomagnesemia; I10 Essential (primary) hypertension; E87.6 Hypokalemia; R74.01 Elevation of levels of liver transaminase levels; F32.A Depression, unspecified; F15.10 Other stimulant abuse, uncomplicated; Y90.9 Presence of alcohol in blood, level not specified; Z59.00 Homelessness unspecified; Z90.49 Acquired absence of other specified parts of digestive tract
CPT/HCPCS: 36415; 74176; 76705; 80048; 80053; 80307; 81001; 83605; 83690; 83735; 84484; 85025; 85048; 87045; 99291; G0378; J2405; J2470

== ENCOUNTER 2025-05-02 15:01 | Emergency (ER) | payer MEDICAID ==
[~2025-05-02] VITALS: Ht 165.1 cm; Wt 77.2 kg
[~2025-05-02 15:01] MED LIST: ESCI10TA PO; GABA-1250 PO
[2025-05-02 15:19] VITALS: BP 146/92; PULSE 96; RESP 18; TEMP 97.6; O2SAT 98
--- NOTE | 2025-05-02 15:26 | ED.PDOC ---
GI ASSESSMENT HPI Comments 39 y.o male presents to the ED for a chief complaint of nausea, vomiting and abdominal pain x 1 day. Patient reports working out in the heat these past couple of days, states he woke up today with mild non bilious non bloody emesis and abdominal discomfort. Patient denies any diarrhea, fever, chills, bloody stool. Chief Complaint: Nausea/Vomiting Time Seen by MD: 15:20 Reviewed Notes: Nurses Notes, Medications, Allergies Allergies: Coded Allergies: NO KNOWN ALLERGIES (Unverified , 04/14/25) Home Meds Active Scripts Ondansetron Odt 4MG Tab (ZOFRAN PO) 4 Mg Tb, 4 MG PO Q8HP PRN for 5 Days, #15 TAB ODT TAB-DISSOLVE IN MOUTH, THEN SWALLOW Prov:FALGUNI ROSALES MD 05/02/25 Escitalopram Oxalate (Lexapro) 10 Mg Tab, 1 TAB PO DAILY for 14 Days, #14 TAB 3 Refills Prov:REJI LOERA MD 04/16/25 Gabapentin (Gabapentin) 300 Mg Cap, 300 MG PO TID for 14 Days, #42 CAP Prov:REJI LOERA MD 04/16/25 Information Source: Patient Mode of Arrival: Ambulatory Timing: Days (1) Duration: Since onset Quality: Aching Vomitus: Soft Stool: Normal Severity: Moderate Recent: None Recent Hx of: None Pain Location: Diffuse Modifying Factors: Nothing Associated sign and symptoms: Nausea, Vomiting, Abdominal Pain Past Medical History PAST MEDICAL HISTORY: Denies Surgical History: Denies all surgeries Family History Family History: Family hx of Cancer Social History Smoker: Cigarettes Alcohol: Occasionally Drugs: Denies Drug Use Lives In: Home Constitutional: denies: chills, diaphoresis, fatigue, fever, malaise, sweats, weakness, others EENTM: denies: blurred vision, double vision, ear bleeding, ear discharge, ear drainage, ear pain, ear ringing, eye pain, eye redness, hearing loss, mouth pain, mouth swelling, nasal discharge, nose bleeding, nose congestion, nose pain, photophobia, tearing, throat pain, throat swelling, voice changes, others Respiratory: denies: cough, hemoptysis, orthopnea, SOB at rest, shortness of breath, SOB with excertion, stridor, wheezing, others Cardiovascular: denies: chest pain, dizzy spells, diaphoresis, Dyspnea on exertion, edema, irregular heart beat, left arm pain, lightheadedness, palpitations, PND, syncope, others Gastrointestinal: reports: abdominal pain, nausea, vomiting; denies: abdomen distended, blood streaked bowels, constipated, diarrhea, dysphagia, difficulty swallowing, hematemesis, melena, poor appetite, poor fluid intake, rectal bleeding, rectal pain, others Genitourinary: denies: burning, dysuria, flank pain, frequency, hematuria, incontinence, penile discharge, penile sore, pain, testicle pain, testicle swelling, urgency, others Neurological: denies: dizziness, fainting, headache, left sided numbness, left sided weakness, numbness, paresthesia, pre-existing deficit, right sided numbness, right sided weakness, seizure, speech problems, tingling, tremors, weakness, others Musculoskeletal: denies: back pain, gout, joint pain, joint swelling, muscle pain, muscle stiffness, neck pain, others Integumetry: denies: bruises, change in color, change in hair/nails, dryness, laceration, lesions, lumps, rash, wounds, others Allergic/Immunocompromised: denies: Difficulty Healing, Frequent Infections, Hives, Itching, others Hematologic/Lymphatic: denies: anemia, blood clots, easy bleeding, easy bruising, swollen glands, others Endocrine: denies: excessive hunger, excessive sweating, excessive thirst, excessive urination, flushing, intolerance to cold, intolerance to heat, unexplained weight gain, unexplained weight loss, others Psychiatric: denies: anxiety, bipolar disorder, depression, hopeless, panic disorder, schizophrenia, sleepless, suicidal, others All Other Systems: Reviewed and Negative Physical Exam General Appearance: No Apparent Distress HEENT: Normal ENT Inspection, Pharynx Normal, TMs Normal Neck: Full Range of Motion, Non-Tender, Normal, Normal Inspection Respiratory: Chest Non-Tender, Lungs Clear, No Accessory Muscle Use, No Respiratory Distress, Normal Breath Sounds Cardiovascular: No Edema, No JVD, No Murmur, No Gallop, Normal Peripheral Pulses, Regular Rate/Rhythm Breast Exam: Deferred Gastrointestinal: No Organomegaly, Non Tender, No Pulsatile Mass, Normal Bowel Sounds, Soft Genitalia: Deferred Pelvic: Deferred Rectal: Deferred Extremities: No calf tenderness, Normal capillary refill, Normal inspection, Normal range of motion, Non-tender, No pedal edema Musculoskeletal : Apperance: Normal Neurologic: Alert, community 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 Was a procedure done?: No GI differential Dx Differential Diagnosis: Gastroenteritis, Dehydration, Electrolyte Imbalance, Food Poisoning, Parasitic X-Ray, Labs, Meds, VS Vital Signs Date Time Temp Pulse Resp B/P (MAP) Pulse Ox O2 Delivery O2 Flow Rate FiO2 05/02/25 15:19 97.6 96 18 146/92 (110) 98 97.6 Lab Test 05/02/25 15:42 05/02/25 15:14 Range/Units White Blood Count 6.6 4.4-10.8 10^3/uL Red Blood Count 4.65 4.5-5.90 10^6/uL Hemoglobin 14.2 13.5-17.5 g/dL Hematocrit 41.7 41.0-53.0 % Mean Corpuscular Volume 89.5 80.0-100.0 fL Mean Corpuscular Hemoglobin 30.4 28.0-32.0 pg Mean Corpuscular Hemoglobin Concent 34.0 32.0-36.0 g/dL Red Cell Distribution Width 15.0 H 11.8-14.3 % Platelet Count 289 140-450 10^3/uL Mean Platelet Volume 7.4 6.9-10.8 fL Neutrophils (%) (Auto) 59.2 37.0-80.0 % Lymphocytes (%) (Auto) 28.8 10.0-50.0 % Monocytes (%) (Auto) 10.5 0.0-12.0 % Eosinophils (%) (Auto) 0.9 0.0-7.0 % Basophils (%) (Auto) 0.6 0.0-2.0 % Neutrophils # (Auto) 3.9 1.6-8.6 10 ^3/uL Lymphocytes # (Auto) 1.9 0.4-5.4 10 ^3/uL Monocytes # (Auto) 0.7 0-1.3 10 ^3/uL Eosinophils # (Auto) 0.1 0-0.8 10 ^3/uL Basophils # (Auto) 0 0-0.2 10 ^3/uL Nucleated Red Blood Cells 0.1 % Sodium Level 141 136-145 mmol/L Potassium Level 3.1 L 3.5-5.1 mmol/L Chloride Level 102 98-107 mmol/L Carbon Dioxide Level 26 20-31 mmol/L Anion Gap 13 5-15 Blood Urea Nitrogen 17 9-23 mg/dL Creatinine 1.95 H 0.700-1.30 mg/dL Glomerular Filtration Rate Calc 45 >90 mL/min BUN/Creatinine Ratio 8.7 L 10.0-20.0 Serum Glucose 132 H 74-106 mg/dL Calcium Level 9.1 8.7-10.4 mg/dL Urine Color Light-yellow Yellow Urine Clarity Clear Clear Urine pH 5.0 5.0-9.0 Urine Specific [place] 1.008 1.001-1.035 Urine Protein Negative Negative Urine Ketones Negative Negative Urine Blood Negative Negative /uL Urine Nitrite Negative Negative Urine Bilirubin Negative Negative Urine Urobilinogen Normal Negative mg/dL Urine Leukocyte Esterase Negative Negative /uL Urine RBC 1 0 - 3 /hpf Urine Microscopic WBC 3 0-3 /HPF Urine Squamous Epithelial Cells Few <5 /hpf Urine Bacteria Few H None Seen /hpf Urine Glucose Normal Normal mg/dL IV Hep-Lock was established The patient was given a 1 L bolus of normal saline The patient was given Zofran 4 mg IV push The patient is being discharged and will follow up with the primary care doctor The patient will return to the emergency department's the condition worsens. Time of 1ST Reevaluation: 15:26 Reevaluation 1ST: Unchanged Patient Education/Counseling: Diagnosis, Treatment, Prognosis, Need For Follow Up Family Education/Counseling: No Family Present SEPSIS Sepsis Screen Physician Orders Heplock Iv (05/02/25 15:23) Sodium Chloride 0.9% (05/02/25 15:30) Vital Signs Date Time Temp Pulse Resp B/P (MAP) Pulse Ox O2 Delivery O2 Flow Rate FiO2 05/02/25 15:19 97.6 96 18 146/92 (110) 98 97.6 Laboratory Tests Test 05/02/25 15:42 White Blood Count 6.6 10^3/uL (4.4-10.8) Departure 1 Departure Time of Disposition: 16:30 Impression: Primary Impression: Heat exhaustion Qualified Codes: T67.5XXA - Heat exhaustion, unspecified, initial encounter Additional Impression: Dehydration Disposition: HOME / SELF CARE / HOMELESS Condition: Fair e-Prescriptions Ondansetron Odt 4MG Tab (ZOFRAN PO) 4 Mg Tb 4 MG PO Q8HP PRN for 5 Days, #15 TAB ODT TAB-DISSOLVE IN MOUTH, THEN SWALLOW Prov: FALGUNI ROSALES MD 05/02/25 Discharged With: Self Critical Care Note Critical Care Time?: No Stability Stability form required: No I personally scribed for FALGUNI ROSALES MD ([email or web address]) on 05/02/25 at 15:26. El ectronically submitted by Tegan Vidales ([facility]). FALGUNI ROSALES MD May 02, 2025 15:26
[2025-05-02] MEDS: ONDANSETRON HCL 4 MG/2 ML VIAL IV ONE (15:30)
[2025-05-02] MEDS: SODIUM CHLORIDE 0.9% 1,000 ML IV ONE (15:30)
[2025-05-02 15:52] LABS: Urine Protein, UAD Negative (Negative)
[2025-05-02 16:00] LABS: Hematocrit 41.7 % (41.0-53.0); Hemoglobin 14.2 g/dL (13.5-17.5); Mean Corpuscular Hemoglobin 30.4 pg (28.0-32.0); Mean Corpuscular Volume 89.5 fL (80.0-100.0); Nucleated Red Blood Cells % 0.1 %
[2025-05-02 16:05] LABS: Chloride 102 mmol/L (98-107); Sodium 141 mmol/L (136-145)
[2025-05-02 16:06] LABS: Anion Gap 13 (5-15); Carbon Dioxide 26 mmol/L (20-31)
[2025-05-02 16:07] LABS: Calcium 9.1 mg/dL (8.7-10.4)
[2025-05-02 16:12] LABS: BUN/Creatinine Ratio 8.7 (10.0-20.0); Blood Urea Nitrogen 17 mg/dL (9-23)
[2025-05-02 16:13] LABS: Glucose 132 mg/dL (74-106); Potassium 3.1 mmol/L (3.5-5.1)
[2025-05-02] MEDS ORDERED: ZOFR4T PO (16:28)
== END 2025-05-02 18:30 | disposition home or self-care (01) ==
LOC: ER 15:01
DX: T67.5XXA Heat exhaustion, unspecified, initial encounter (principal); E86.0 Dehydration; F17.210 Nicotine dependence, cigarettes, uncomplicated; F10.90 Alcohol use, unspecified, uncomplicated; Z79.899 Other long term (current) drug therapy; X30.XXXA Exposure to excessive natural heat, initial encounter; Y93.89 Activity, other specified; Y92.89 Other specified places as the place of occurrence of the external cause; Y99.0 Civilian activity done for income or pay; Y90.9 Presence of alcohol in blood, level not specified
CPT/HCPCS: 36415; 80048; 81001; 85025; 96361; 96374; 99283; J2405; J7030

== ENCOUNTER 2025-10-17 11:30 | Emergency (ER) | payer MEDICAID ==
[~2025-10-17] VITALS: Ht 165.1 cm; Wt 92.2 kg
[~2025-10-17 11:30] MED LIST changes: +ZOFR4T PO
[2025-10-17] MEDS ORDERED: PRED20TA2 PO (12:40)
[2025-10-17] MEDS ORDERED: IBUP-1454 PO (12:40)
--- NOTE | 2025-10-17 12:43 | ED.PDOC ---
Musculoskeletal HPI Comments 40 year old male presents to the ED with a chief complaint of LT arm pain onset 1 day. Patient woke up yesterday experiencing LT arm pain, LT hand swelling. He noticed pain begins LT side neck radiates down to LT arm, LT hand. Patient states he had no pain when he went to sleep, woke up with symptoms. No other symptoms or modifying factors present at this time. No other symptoms or modifying factors present at this time. Denies fevers chills night sweats nausea vomiting redness around the arm Denies previous surgeries to the shoulder or significant injury Denies Numbness/tingling down the arm Denies changes, shortness of breath Chief Complaint: Upper Extremity Time Seen by MD: 12:30 Primary Care Provider: UNKNOWN Reviewed Notes: Nurses Notes, Medications, Allergies Allergies: Coded Allergies: No Known Drug Allergy (Unverified Allergy, Unknown, 05/12/25) Home Meds Active Scripts Ibuprofen (Ibuprofen) 600 Mg Tab, 1 TAB PO TID for 10 Days, #30 TAB 0 Refills Prov:MENA RODRIGUEZ NP 10/17/25 Prednisone (Prednisone) 20 Mg Tab, 40 MG PO DAILY for 5 Days, #10 TAB 0 Refills Prov:MENA RODRIGUEZ NP 10/17/25 Ondansetron Odt 4MG Tab (ZOFRAN PO) 4 Mg Tb, 4 MG PO Q8HP PRN for 5 Days, #15 TAB ODT TAB-DISSOLVE IN MOUTH, THEN SWALLOW Prov:FALGUNI ROSALES MD 05/02/25 Escitalopram Oxalate (Lexapro) 10 Mg Tab, 1 TAB PO DAILY for 14 Days, #14 TAB 3 Refills Prov:REJI LOERA MD 04/16/25 Gabapentin (Gabapentin) 300 Mg Cap, 300 MG PO TID for 14 Days, #42 CAP Prov:REJI LOERA MD 04/16/25 Information Source: Patient Mode of Arrival: Ambulatory Location: Left Extremity Location: Arm Timing: Days Prehospital treatment: None Severity: Moderate Able to Move Extremity: Yes Pain: Moderate Mechanism: Spontaneous Circumstances: Spontaneous Onset of Symptoms: Spontaneous Symptoms: Swelling, Pain DVT Risk Factors: NONE Last Tetanus: UTD Associated signs and symptoms: Arm pain Past Medical History PAST MEDICAL HISTORY: Denies Surgical History: Denies all surgeries Family History Family History: Family hx of Cancer Social History Smoker: Cigarettes Alcohol: Occasionally Drugs: Denies Drug Use Lives In: Home All Other Systems: Reviewed and Negative (as per hpi) Physical Exam General Appearance: Normal HEENT: Normal ENT Inspection, Pharynx Normal, TMs Normal Neck: Full Range of Motion, Non-Tender, Normal, Normal Inspection Respiratory: Chest Non-Tender, Lungs Clear, No Accessory Muscle Use, No Respiratory Distress, Normal Breath Sounds Cardiovascular: No Edema, No JVD, No Murmur, No Gallop, Normal Peripheral Pulses, Regular Rate/Rhythm Breast Exam: Deferred Gastrointestinal: No Organomegaly, Non Tender, No Pulsatile Mass, Normal Bowel Sounds, Soft Genitalia: Deferred Pelvic: Deferred Rectal: Deferred Extremities: No calf tenderness, Normal capillary refill, Normal inspection, Normal range of motion, Non-tender, No pedal edema Musculoskeletal : Apperance: Normal Neurologic: Alert, 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 Was a procedure done?: No Differential Diagnosis EXT Differential Diagnosis: Fracture, Sprain, Arthritis, Bursitis, Other X-Ray, Labs, Meds, VS Vital Signs Date Time Temp Pulse Resp B/P (MAP) Pulse Ox O2 Delivery O2 Flow Rate FiO2 10/17/25 14:14 98.5 85 17 155/97 (116) 98 98.5 10/17/25 14:14 85 18 98 Room Air 10/17/25 11:33 97.7 100 20 176/115 100 97.7 X-Ray, Labs, Meds, VS Comment 40 year old male presents to the ED with a chief complaint of LT arm pain onset 1 day. Patient arrives alert and oriented, ABC's intact, afebrile, vital signs stable, saturating well in room air + neck pain radiating down the affected upper extremity Denies numbness and weakness. NIH score 0 ED Workup: Defer C-Spine imaging given negative by NEXUS criteria Given History, Exam the patient appears to have a cervical radiculopathy. Patient appears to be low risk for complications or other emergent conditions such as anginal equivalent, ariela cervical instability, arterial dissection, osteomyelitis, epidural abscess, central cord syndrome, c-spine fracture, CVA, other spinal emergencies Rx: NSAIDs, outpatient physical therapy evaluation and recommendation for home exercises in the interim Disposition: Discharge. The patient has been given strict return precautions and understands the need to follow up within 48 hours with their primary care provider Additional MDM Review of External, Non-ED records: External records reviewed. Discussion with independent historian (EMS, family) history obtained from the patient/parents (if applicable) at bedside Chronic conditions affecting care: None Social determinants of health affecting care: None Consideration of admission (observation or admission): I considered escalation of care to admission for this patient, however given the reassuring workup, the patient is safe for outpatient management. On reevaluation, patient had symptomatic improvement. Patient is stable for discharge at this time. External notes reviewed. Test results and diagnostic imaging interpreted. All diagnostic findings, discharge care, education and instructions provided Follow-up with PCP in 2 to 3 days Patient verbalized understanding and agreed to treatment plan Vital signs stable, afebrile, no acute distress noted Patient ambulatory with strong steady gait Advised to return precautions for any new or worsening symptoms, return to ER immediately for re-evaluation Patient is aware that the purpose of this visit was for an acute medical emergency requiring emergent stabilization. Chronic conditions, including malignancies have not been ruled out. Patient is instructed to follow up with PCP as directed and discharge instructions for continued care and workup. If unable to arrange follow-up, patient is to return to the emergency department for reassessment. Patient (parent or legal guardian if applicable) was given verbal and written discharge instructions and acknowledges understanding. Time of 1ST Reevaluation: 13:00 Reevaluation 1ST: Improved Patient Education/Counseling: Diagnosis, Treatment Family Education/Counseling: No Family Present Departure 1 Departure Time of Disposition: 12:41 Impression: Primary Impression: Cervical radiculopathy Disposition: 01 HOME / SELF CARE / HOMELESS Condition: Stable e-Prescriptions Ibuprofen (Ibuprofen) 600 Mg Tab 1 TAB PO TID for 10 Days, #30 TAB 0 Refills Prov: MENA RODRIGUEZ NP 10/17/25 Prednisone (Prednisone) 20 Mg Tab 40 MG PO DAILY for 5 Days, #10 TAB 0 Refills Prov: MENA RODRIGUEZ NP 10/17/25 Discharged With: Self Critical Care Note Critical Care Time?: No Stability Stability form required: No Heart Score Heart Score: Heart Score Response (Comments) Value History N/A 0 EKG N/A 0 Age N/A 0 Risk Factors N/A 0 Troponin N/A 0 Total 0 I personally scribed for MENA RODRIGUEZ NP ([email or web address]) on 10/17/25 at 12:43. Electronically submitted by Aneta Benito ([email or web address]). MENA RODRIGUEZ NP Oct 17, 2025 12:43
[2025-10-17 14:14] VITALS: BP 155/97; PULSE 85; RESP 18; TEMP 98.5; O2SAT 98
== END 2025-10-17 14:15 | disposition home or self-care (01) ==
LOC: ER 11:30
DX: M54.12 Radiculopathy, cervical region (principal); F10.90 Alcohol use, unspecified, uncomplicated; F17.210 Nicotine dependence, cigarettes, uncomplicated; Z79.899 Other long term (current) drug therapy; Z79.52 Long term (current) use of systemic steroids; Z79.1 Long term (current) use of non-steroidal anti-inflammatories (NSAID)